=== PATIENT | female | born 1960 | race Caucasian/White ===

== ENCOUNTER 2018-01-08 10:05 | Emergency (ER) | payer MEDICAID ==
[~2018-01-08] VITALS: Ht 165.1 cm; Wt 63.6 kg
[2018-01-08] MEDS ORDERED: IBUP-2071 PO (10:19)
[2018-01-08 11:29] VITALS: BP 143/94
== END 2018-01-08 12:36 | disposition home or self-care (01) ==
LOC: EMS 10:06
DX: M79.641 Pain in right hand (principal); M79.642 Pain in left hand; R03.0 Elevated blood-pressure reading, without diagnosis of hypertension; F17.210 Nicotine dependence, cigarettes, uncomplicated; Z79.899 Other long term (current) drug therapy
CPT/HCPCS: 99283

== ENCOUNTER 2018-04-27 13:30 | Emergency (ER) | payer MEDICAID ==
[~2018-04-27] VITALS: Ht 165.1 cm; Wt 65.5 kg
[~2018-04-27 13:30] MED LIST: IBUP-2071 PO
[2018-04-27] MEDS ORDERED: CEPHALEXIN MONOHYDRATE 500 MG CAPSULE PO ONE (14:15)
[2018-04-27 14:51] VITALS: BP 142/85
== END 2018-04-27 14:52 | disposition home or self-care (01) ==
LOC: EMS 13:31
DX: S90.812A Abrasion, left foot, initial encounter (principal); F17.210 Nicotine dependence, cigarettes, uncomplicated; X58.XXXA Exposure to other specified factors, initial encounter; Y93.89 Activity, other specified; Y92.89 Other specified places as the place of occurrence of the external cause; Y99.8 Other external cause status
CPT/HCPCS: 99284; 99406

== ENCOUNTER 2018-08-06 17:22 | Emergency (ER) | payer MEDICAID ==
[~2018-08-06] VITALS: Ht 165.1 cm; Wt 145.0 kg
[2018-08-06] MEDS ORDERED: IBUPROFEN 600 MG TABLET PO ONE (19:00)
[2018-08-06 19:10] VITALS: BP 133/80
== END 2018-08-06 19:14 | disposition home or self-care (01) ==
LOC: EMS 17:23
DX: M79.642 Pain in left hand (principal); F17.210 Nicotine dependence, cigarettes, uncomplicated
CPT/HCPCS: 99406